=== PATIENT | male | born 1965 | race Caucasian/White ===

== ENCOUNTER 2024-09-28 10:01 | Inpatient (IN) ==
[2024-09-28 10:15] LABS: ABG BASE EXCESS 21.4 mmol/L (-2.0-2.0)
[2024-09-28 10:16] LABS: ABG ALLEN TEST POS; ABG HCO3 46.6 mmol/L (22-26)
--- NOTE | 2024-09-28 10:17 | DR.GENAD ---
HPI Time Seen Time Seen by Provider: 09/28/24 10:10 PCP Primary Care Physician: Brittni Cabezas in with [facility] Complaint/Symptoms Chief Complaint:: Pt states that he has been "retaining water" for weeks and when we went to get pt in a gown he stated "i need to catch my breath". Pt states has copd and wears oxygen at 4L at home and that he does better with a mask for oxygen. Self Treatment fo Chief Complaint: Pt o2 sat noted being 66% on room air. Pt placed on venni mask at 50% and came up to 78%. Respiratory is at bedside at this time. COVID-19 Coronavirus risk:travel/contact w/high risk person: No Has patient experienced Coronavirus symptoms: No Source History Provided: Patient Mode of Arrival Mode of Arrival: Wheelchair Timing Onset of Chief Complaint: 09/28/24 PMH PMH Past Medical History: Yes Past Medical History: CHF, COPD, Coronary Artery Disease, Diabetes, Dyslipidemia, Hypertension and Renal Disease Past Medical History Comment: PVD Past Surgical History: Yes Surgical History: Tonsillectomy Family History History of Family Medical Conditions: Yes Family Medical History: Heart Failure and Hypertension Social History Does patient currently use any type of tobacco product: No Have you used tobacco products in the last 12 months: No Does any household member use tobacco: No Alcohol Use: None Do you use any recreational Drugs:: No Lives With: Family Lives Where: Home Travel Risk Coronavirus risk:travel/contact w/high risk person: No Has patient experienced Coronavirus symptoms: No Infectious screening Have you traveled outside the country in the last 6 months?: No Isolation: Standard PE Vital Signs Vitals: Vital Signs Temperature 97.9 F Pulse Rate 86 Pulse Rate 82 Pulse Rate 84 Pulse Rate 86 Pulse Rate 87 Pulse Rate 88 Pulse Rate 98 Pulse Rate 87 Pulse Rate 87 Pulse Rate 88 Pulse Rate 84 Pulse Rate 86 Pulse Rate 92 Respiratory Rate 33 Respiratory Rate 32 Respiratory Rate 25 Respiratory Rate 22 Blood Pressure 111/64 O2 Sat by Pulse Oximetry 95 O2 Sat by Pulse Oximetry 98 O2 Sat by Pulse Oximetry 95 O2 Sat by Pulse Oximetry 94 O2 Sat by Pulse Oximetry 95 O2 Sat by Pulse Oximetry 94 O2 Sat by Pulse Oximetry 84 O2 Sat by Pulse Oximetry 94 O2 Sat by Pulse Oximetry 96 O2 Sat by Pulse Oximetry 95 O2 Sat by Pulse Oximetry 94 O2 Sat by Pulse Oximetry 92 ROR Labs Reviewed 09/28/24 10:37 09/28/24 10:37 Laboratory: WBC 8.7 X10^3/uL (3.6-10.0) 09/28/24 10:37 RBC 3.52 X10^6/uL (4.7-6.0) L 09/28/24 10:37 Hgb 12.3 g/dL (13.5-18.0) L 09/28/24 10:37 Hct 35.7 % (42.0-54.0) L 09/28/24 10:37 MCV 101.2 fL (80.0-100.0) H 09/28/24 10:37 MCH 34.9 pg (27.0-34.0) H 09/28/24 10:37 MCHC 34.5 g/dL (33.0-35.0) 09/28/24 10:37 RDW 15.0 % (11.6-16.5) 09/28/24 10:37 Plt Count 113 X10^3/uL (150.0-450.0) L 09/28/24 10:37 MPV 7.7 fL (7.4-11.0) 09/28/24 10:37 Neut % (Auto) 73.0 % (42.0-75.0) 09/28/24 10:37 Lymph % (Auto) 14.3 % (21.0-51.0) L 09/28/24 10:37 [place] % (Auto) 9.2 % (0.0-13.0) 09/28/24 10:37 Eos % (Auto) 2.8 % (0.9-2.9) 09/28/24 10:37 Baso % (Auto) 0.7 % (0.2-1.0) 09/28/24 10:37 Neut # (Auto) 6.3 x10^3/uL (2.2-4.8) H 09/28/24 10:37 Lymph # (Auto) 1.2 X10^3/uL (1.3-2.9) L 09/28/24 10:37 [place] # (Auto) 0.8 x10^3/uL (0.3-0.8) 09/28/24 10:37 Eos # (Auto) 0.2 x10^3/uL (0.0-0.2) 09/28/24 10:37 Baso # (Auto) 0.1 X10^3/uL (0.0-0.1) 09/28/24 10:37 Absolute Nucleated RBC 0.0 /100WBC 09/28/24 10:37 PT 17.8 SECONDS (11.8-14.3) 09/28/24 10:37 INR Target Range - 09/28/24 10:37 INR 1.51 (0.8-1.3) H 09/28/24 10:37 APTT 30.3 SECONDS (22.9-36.5) 09/28/24 10:37 PTT Comment - 09/28/24 10:37 Sample Site Rrad 09/28/24 10:04 ABG pH 7.560 (7.35-7.45) H* 09/28/24 10:04 ABG pCO2 52.0 mmHg (35.0-45.0) H* 09/28/24 10:04 ABG pO2 51.0 mmHg (80.0-100.0) L 09/28/24 10:04 ABG HCO3 46.6 mmol/L (22-26) H* 09/28/24 10:04 ABG O2 Saturation 91.0 % (90-100) 09/28/24 10:04 ABG Base Excess 21.4 mmol/L (-2.0-2.0) H 09/28/24 10:04 Jerman Test Pos 09/28/24 10:04 A-a Gradient 241.0 mmHg 09/28/24 10:04 FiO2 50.0 09/28/24 10:04 Blood Gas Comments Pt mariana well elj cdn 09/28/24 10:04 Sodium 132 mmol/L (136-145) L 09/28/24 10:37 Corrected Sodium 133 mmol/L (136-145) L 09/28/24 10:37 Potassium 2.5 mmol/L (3.5-5.1) L* 09/28/24 10:37 Chloride 89 mmol/L (98-107) L 09/28/24 10:37 Carbon Dioxide 40.0 mmol/L (21-32) H 09/28/24 10:37 BUN 20 mg/dL (7-18) H 09/28/24 10:37 Creatinine 1.40 mg/dL (0.70-1.30) H 09/28/24 10:37 Est GFR (MDRD) Af Amer > 60 (>60) 09/28/24 10:37 Est GFR (MDRD) Non-Af 55 (>60) L 09/28/24 10:37 Glucose 146 mg/dL (65-99) H 09/28/24 10:37 Calcium 9.2 mg/dL (8.5-10.1) 09/28/24 10:37 Corrected Calcium 10.3 mg/dL (8.5-10.1) H 09/28/24 10:37 Magnesium 1.2 mg/dL (2.0-2.9) L 09/28/24 10:37 Total Bilirubin 3.80 mg/dL (0.2-1.0) H 09/28/24 10:37 AST 30 Units/L (15-37) 09/28/24 10:37 ALT 19 Units/L (12-78) 09/28/24 10:37 Alkaline Phosphatase 174 Units/L (46-116) H 09/28/24 10:37 Creatine Kinase 29 Units/L (39-308) L 09/28/24 10:37 Troponin I High Sens 17.2 ng/L (4.0-60.0) 09/28/24 13:15 B-Natriuretic Peptide 374 pg/mL (0-79) H 09/28/24 10:37 Total Protein 6.4 g/dL (6.4-8.2) 09/28/24 10:37 Albumin 2.6 g/dL (3.4-5.0) L 09/28/24 10:37 Globulin 3.8 g/dL (2.5-4.5) 09/28/24 10:37 Albumin/Globulin Ratio 0.7 Ratio (1.1-2.1) L 09/28/24 10:37 Specimen Type Clean catch urine 09/28/24 11:39 Urine Color Yellow (YELLOW) 09/28/24 11:39 Urine Appearance Clear (CLEAR) 09/28/24 11:39 Urine pH 6.0 (5.0 - 8.0) 09/28/24 11:39 Ur Specific [place] 1.015 (1.000-1.030) 09/28/24 11:39 Urine Protein Negative (NEGATIVE) 09/28/24 11:39 Urine Glucose (UA) Negative (NEGATIVE) 09/28/24 11:39 Urine Ketones Negative (NEGATIVE) 09/28/24 11:39 Urine Blood 1+ (NEGATIVE) 09/28/24 11:39 Urine Nitrite Negative (NEGATIVE) 09/28/24 11:39 Urine Bilirubin Negative (NEGATIVE) 09/28/24 11:39 Urine Urobilinogen 1+ (NORMAL) 09/28/24 11:39 Ur Leukocyte Esterase Negative (NEGATIVE) 09/28/24 11:39 Urine RBC 0-2 /HPF (0-3) 09/28/24 11:39 Urine WBC None seen /HPF (0-5) 09/28/24 11:39 Ur Squamous Epith Cells Rare /HPF (NEGATIVE) 09/28/24 11:39 Urine Bacteria Trace /HPF (NEGATIVE) 09/28/24 11:39 Ur Culture Indicated? No/not indicated 09/28/24 11:39 Opioid Opioid Risk Tool Age (Dax box if 16-45): No Total: 0 Total Score Risk Category: Low Risk Copyright: Riley predicting aberrant behaviors Discharge Plan Diagnosis Discharge Problem: SOB (shortness of breath), CHF (congestive heart failure), Edema, Hypokalemia, Hypomagnesemia, Hypoxia Discharge Plan Patient Disposition: 09 ADMITTED INPATIENT Condition: Stable Health Concerns: Post Hospitalization: new medications and changes needed to prevent readmission or further decline. Pt educated and given instructions on all concerns. Plan of Treatment: Continue with present treatment and follow up plan. Pt is to keep follow up appointment as instructed and take medications as ordered. Orders to Discharge Patient Discharge Orders: Transfer (Routine); Ordered 09/28/24 Ordered By: SELAM NORTH Instructions Stand Alone Forms: Post Hospital Follow Up Care
--- NOTE | 2024-09-28 10:23 | EKG ---
Test Reason : shortness of breath Blood Pressure : */* mmHG Vent. Rate : 87 BPM Atrial Rate : 87 BPM P-R Int : 138 ms QRS Dur : 96 ms QT Int : 332 ms P-R-T Axes : 59 75 -62 degrees QTc Int : 399 ms Normal sinus rhythm RSR' or QR pattern in V1 suggests right ventricular conduction delay Nonspecific ST and T wave abnormality Abnormal ECG No previous ECGs available Confirmed by Alfonso Pace MD ([id number]) on 09/30/2024 7:53:57 AM Referred By: Confirmed By: Alfonso Pace MD
[2024-09-28] MEDS: LASIX IVP ONE (10:33)
[2024-09-28 10:45] LABS: BASOPHILS # (AUTO) 0.1 X10^3/uL (0.0-0.1); BASOPHILS % (AUTO) 0.7 % (0.2-1.0); EOSINOPHILS # (AUTO) 0.2 x10^3/uL (0.0-0.2); EOSINOPHILS % (AUTO) 2.8 % (0.9-2.9); HEMATOCRIT 35.7 % (42.0-54.0); HEMOGLOBIN 12.3 g/dL (13.5-18.0); LYMPHOCYTES # (AUTO) 1.2 X10^3/uL (1.3-2.9); LYMPHOCYTES % (AUTO) 14.3 % (21.0-51.0); MEAN CORPUSCULAR HEMOGLOBIN 34.9 pg (27.0-34.0); MEAN CORPUSCULAR HGB CONC 34.5 g/dL (33.0-35.0); MEAN CORPUSCULAR VOLUME 101.2 fL (80.0-100.0); MEAN PLATELET VOLUME 7.7 fL (7.4-11.0); MONOCYTES # (AUTO) 0.8 x10^3/uL (0.3-0.8); MONOCYTES % (AUTO) 9.2 % (0.0-13.0); NEUTROPHILS # (AUTO) 6.3 x10^3/uL (2.2-4.8); PLATELET COUNT 113 X10^3/uL (150.0-450.0); RED BLOOD COUNT 3.52 X10^6/uL (4.7-6.0); WHITE BLOOD COUNT 8.7 X10^3/uL (3.6-10.0)
[2024-09-28 10:49] LABS: INR 1.51 (0.8-1.3)
[2024-09-28 10:57] LABS: ALANINE AMINOTRANSFERASE 19 Units/L (12-78); ALBUMIN 2.6 g/dL (3.4-5.0); ALKALINE PHOSPHATASE 174 Units/L (46-116); ASPARTATE AMINO TRANSFERASE 30 Units/L (15-37); BLOOD UREA NITROGEN 20 mg/dL (7-18); CALCIUM 9.2 mg/dL (8.5-10.1); CHLORIDE 89 mmol/L (98-107); COR CA(FOR HYPOALB) 10.3 mg/dL (8.5-10.1); COR NA(FOR HYPERGLY) 133 mmol/L (136-145); CREATINE KINASE 29 Units/L (39-308); GLUCOSE 146 mg/dL (65-99); SODIUM 132 mmol/L (136-145); TOTAL PROTEIN 6.4 g/dL (6.4-8.2); eGFR NON BLACK RACES 55 (>60)
[2024-09-28 11:03] LABS: POTASSIUM 2.5 mmol/L (3.5-5.1)
--- NOTE | 2024-09-28 11:42 | RAD ---
EXAM:CHEST, 1 VIEWHISTORY:Shortness of breathCOMPARISON:07/06/2021FINDINGS:The trachea is midline. The cardiac silhouette is enlarged with a tortuous thoracic aorta . Increased interstitial changes with prominent vascular markings are observed consistent with underlying CHF.. The bony thorax is unremarkable.IMPRESSION:Increased interstitial changes with prominent vascular markings are observed consistent with underlying CHF.THIS IS AN ELECTRONICALLY VERIFIED FINAL [id number]/2024 11:39 AM - Electronically signed by Williams Foote MD
[2024-09-28 11:51] LABS: BILIRUBIN,URINE NEGATIVE (NEGATIVE); BLOOD/HEMOGLOBIN,URINE 1+ (NEGATIVE); GLUCOSE, URINE NEGATIVE (NEGATIVE); KETONES,URINE NEGATIVE (NEGATIVE); LEUKOCYTE ESTERASE ,URINE NEGATIVE (NEGATIVE); NITRITES,URINE NEGATIVE (NEGATIVE); PROTEIN,URINE NEGATIVE (NEGATIVE); UROBILINOGEN,URINE 1+ (NORMAL)
[2024-09-28 12:00] LABS: APPEARANCE,URINE CLEAR (CLEAR); BACTERIA,URINE TRACE /HPF (NEGATIVE); COLOR,URINE YELLOW (YELLOW); RBC,URINE 0-2 /HPF (0-3); SQUAMOUS EPITHELIAL CELL,UR RARE /HPF (NEGATIVE)
[2024-09-28] MEDS: K-DUR TAB 20 MEQ PO SCH (13:00)
[2024-09-28] MEDS: MAGNESIUM SULFATE 1 GRAM/100 mL PREMIX 1 G/100 ML BAG IV ONE (13:44)
[2024-09-28] MEDS ORDERED: CONSULT PHARMACY - POTASSIUM & MAGNESIUM XX SCH ×2 (14:00→17:00)
[2024-09-28 15:42] VITALS: BMI 35.4
[2024-09-28] MEDS: PROVENTIL NEB TX 0.083% 2.5MG/ 3ML NEB SCH (16:06)
[2024-09-28] MEDS ORDERED: NovoLIN R (or HumuLIN R) SUBCUT PRN (16:35)
[2024-09-28] MEDS: MAG-OX TAB PO SCH (16:50)
[2024-09-28] MEDS: K-DUR TAB 20 MEQ PO ONE (16:50)
[2024-09-28] MEDS: LASIX IVP SCH (16:51)
[2024-09-28] MEDS ORDERED: PROVENTIL NEB TX 0.083% 2.5MG/ 3ML NEB SCH (17:00)
[2024-09-28] MEDS: COLACE CAP 100 MG PO PRN (18:21)
[2024-09-28] MEDS: MILK OF MAGNESIA PO PRN (18:22)
--- NOTE | 2024-09-28 20:56 | EKG ---
Test Reason : sob Blood Pressure : */* mmHG Vent. Rate : 85 BPM Atrial Rate : 85 BPM P-R Int : 116 ms QRS Dur : 96 ms QT Int : 488 ms P-R-T Axes : 47 76 41 degrees QTc Int : 580 ms Sinus rhythm with premature supraventricular complexes Possible Left atrial enlargement Abnormal ECG When compared with ECG of 28-SEP-2024 10:19, (Unconfirmed) premature supraventricular complexes are now present Inverted T waves have replaced nonspecific T wave abnormality in Anterior leads QT has lengthened Confirmed by Alfonso Pace MD ([id number]) on 09/30/2024 7:53:07 AM Referred By: Confirmed By: Alfonso Pace MD
[2024-09-28] MEDS ORDERED: PULMICORT NEB TX 0.5 MG NEB SCH (21:00)
[2024-09-28] MEDS: PULMICORT NEB TX 0.5 MG NEB SCH (21:05)
[2024-09-28] MEDS: SNACK - Diabetic Appropriate PO SCH (23:16)
[2024-09-29 06:25] LABS: BASOPHILS % (AUTO) 0.4 % (0.2-1.0); EOSINOPHILS # (AUTO) 0.2 x10^3/uL (0.0-0.2); EOSINOPHILS % (AUTO) 2.7 % (0.9-2.9); HEMATOCRIT 35.9 % (42.0-54.0); HEMOGLOBIN 12.2 g/dL (13.5-18.0); LYMPHOCYTES # (AUTO) 1.4 X10^3/uL (1.3-2.9); LYMPHOCYTES % (AUTO) 15.6 % (21.0-51.0); MEAN CORPUSCULAR HEMOGLOBIN 34.1 pg (27.0-34.0); MEAN CORPUSCULAR HGB CONC 33.8 g/dL (33.0-35.0); MEAN CORPUSCULAR VOLUME 100.9 fL (80.0-100.0); MEAN PLATELET VOLUME 8.1 fL (7.4-11.0); MONOCYTES # (AUTO) 0.9 x10^3/uL (0.3-0.8); MONOCYTES % (AUTO) 10.1 % (0.0-13.0); NEUTROPHILS # (AUTO) 6.2 x10^3/uL (2.2-4.8); NEUTROPHILS % (AUTO) 71.2 % (42.0-75.0); PLATELET COUNT 116 X10^3/uL (150.0-450.0); RED BLOOD COUNT 3.56 X10^6/uL (4.7-6.0); WHITE BLOOD COUNT 8.7 X10^3/uL (3.6-10.0)
[2024-09-29 06:48] LABS: ALANINE AMINOTRANSFERASE 21 Units/L (12-78); ALBUMIN 2.4 g/dL (3.4-5.0); ALKALINE PHOSPHATASE 162 Units/L (46-116); ASPARTATE AMINO TRANSFERASE 35 Units/L (15-37); BLOOD UREA NITROGEN 19 mg/dL (7-18); CARBON DIOXIDE 44.6 mmol/L (21-32); CHLORIDE 90 mmol/L (98-107); COR CA(FOR HYPOALB) 10.3 mg/dL (8.5-10.1); COR NA(FOR HYPERGLY) 135 mmol/L (136-145); CREATININE 1.38 mg/dL (0.70-1.30); GLUCOSE 161 mg/dL (65-99); MAGNESIUM 1.6 mg/dL (2.0-2.9); SODIUM 134 mmol/L (136-145); eGFR NON BLACK RACES 56 (>60)
[2024-09-29 06:58] LABS: POTASSIUM 2.2 mmol/L (3.5-5.1)
[2024-09-29] MEDS ORDERED: K-DUR TAB 20 MEQ PO SCH (09:00)
[2024-09-29] MEDS ORDERED: ULTRAM PO PRN (09:30)
[2024-09-29] MEDS ORDERED: PATIENT'S HOME MEDICATION (Omeprazole 40 mg capsule,delayed release(DR/EC)) PO SCH (09:30)
[2024-09-29] MEDS: K-DUR TAB 20 MEQ PO SCH (10:09)
--- NOTE | 2024-09-29 11:58 | DR.H&P ---
H&P History & Physical for Day of: H&P Date: 09/29/24 Chief Complaint Chief Complaint: SOB, edema History of Present Illness History of Present Illness: Mr Robbins is a 58y/o male with a PMH of CHF, COPD, Chronic respiratory failure on home O2, HTN, HLD, CKD presented with worsening dyspnea and leg edema. He reports taking lasix and metolazone at home with no relief. ER work up showed ABG consistent with hypoxia/hypercapnia, labs showed low K and Mag. CXR was concerning for CHF. UA negative. He was started on Iv lasix and electrolyte replacement. He is currently on 7L Oxy mask. He reports feeling better. His leg edema has improved. Labs/imaging reviewed: -WBC 8.7 Hgb 12.2 K 2.2 Mag 1.6 BUN/Cr 19/.38 -CXR reviewed Plan: admit to med-surg with telemetry. Follow CXR results. Continue IV lasix 40 mg daily, hold off on metolazone due to low BP. Echo pending. Replace K and Mag orally. Repeat K level this afternoon. Monitor I&Os, daily weights. Wean O2 as tolerated, keep sats > 90%. Continue nebs and pulmicort. Monitor AM labs/imaging. Past Medical History Past Medical History: CHF, COPD, Coronary Artery Disease, Diabetes, Dyslipidemia, Hypertension and Renal Disease Past Surgical History Surgical History: Tonsillectomy Family History Family Medical History: Heart Failure and Hypertension Social History Does patient currently use any type of tobacco product: No Have you used tobacco products in the last 12 months: No Type of Tobacco Use: Cigarettes How many years tobacco product used: 44 Does any household member use tobacco: No Alcohol Use: None Drug Use: Prescription Drugs Medications Home Medications: Home Medications Medication Instructions Recorded Confirmed Type dapagliflozin propanediol 5 mg 5 mg PO QDAY 09/28/24 09/28/24 History tablet (Farxiga) fluticasone propionate 50 1 spray intranasal QDAY 09/28/24 09/28/24 History mcg/actuation nasal spray,suspension furosemide 40 mg tablet 40 mg PO QDAY 09/28/24 09/28/24 History metolazone 2.5 mg tablet 2.5 mg PO DAILY 09/28/24 09/28/24 History metolazone 5 mg tablet 5 mg PO QDAY 09/28/24 09/28/24 History montelukast 10 mg tablet 10 mg PO QDAY 09/28/24 09/28/24 History omeprazole 40 mg capsule,delayed 40 mg PO QDAY 09/28/24 09/28/24 History release potassium chloride 10 mEq 10 meq PO BID 09/28/24 09/28/24 History tablet,extended release simvastatin 20 mg tablet 20 mg PO QPM 09/28/24 09/28/24 History tiotropium bromide 2.5 2 puff inhalation QDAY 09/28/24 09/28/24 History mcg/actuation mist for inhalation (Spiriva Respimat) tramadol 50 mg tablet 50 mg PO Q6H PRN 09/28/24 09/28/24 History Allergies Allergies Allergy/AdvReac Type Severity Reaction Status Date / Time No Known Allergies Allergy Verified 09/28/24 10:16 Labs 09/29/24 05:17 09/29/24 05:17 Labs: Laboratory WBC 8.7 X10^3/uL (3.6-10.0) 09/29/24 05:17 RBC 3.56 X10^6/uL (4.7-6.0) L 09/29/24 05:17 Hgb 12.2 g/dL (13.5-18.0) L 09/29/24 05:17 Hct 35.9 % (42.0-54.0) L 09/29/24 05:17 MCV 100.9 fL (80.0-100.0) H 09/29/24 05:17 MCH 34.1 pg (27.0-34.0) H 09/29/24 05:17 MCHC 33.8 g/dL (33.0-35.0) 09/29/24 05:17 RDW 15.0 % (11.6-16.5) 09/29/24 05:17 Plt Count 116 X10^3/uL (150.0-450.0) L 09/29/24 05:17 MPV 8.1 fL (7.4-11.0) 09/29/24 05:17 Neut % (Auto) 71.2 % (42.0-75.0) 09/29/24 05:17 Lymph % (Auto) 15.6 % (21.0-51.0) L 09/29/24 05:17 [place] % (Auto) 10.1 % (0.0-13.0) 09/29/24 05:17 Eos % (Auto) 2.7 % (0.9-2.9) 09/29/24 05:17 Baso % (Auto) 0.4 % (0.2-1.0) 09/29/24 05:17 Neut # (Auto) 6.2 x10^3/uL (2.2-4.8) H 09/29/24 05:17 Lymph # (Auto) 1.4 X10^3/uL (1.3-2.9) 09/29/24 05:17 [place] # (Auto) 0.9 x10^3/uL (0.3-0.8) H 09/29/24 05:17 Eos # (Auto) 0.2 x10^3/uL (0.0-0.2) 09/29/24 05:17 Baso # (Auto) 0.0 X10^3/uL (0.0-0.1) 09/29/24 05:17 Absolute Nucleated RBC 0.1 /100WBC 09/29/24 05:17 PT 17.8 SECONDS (11.8-14.3) 09/28/24 10:37 INR Target Range - 09/28/24 10:37 INR 1.51 (0.8-1.3) H 09/28/24 10:37 APTT 30.3 SECONDS (22.9-36.5) 09/28/24 10:37 PTT Comment - 09/28/24 10:37 Sample Site Rrad 09/28/24 10:04 ABG pH 7.560 (7.35-7.45) H* 09/28/24 10:04 ABG pCO2 52.0 mmHg (35.0-45.0) H* 09/28/24 10:04 ABG pO2 51.0 mmHg (80.0-100.0) L 09/28/24 10:04 ABG HCO3 46.6 mmol/L (22-26) H* 09/28/24 10:04 ABG O2 Saturation 91.0 % (90-100) 09/28/24 10:04 ABG Base Excess 21.4 mmol/L (-2.0-2.0) H 09/28/24 10:04 Jerman Test Pos 09/28/24 10:04 A-a Gradient 241.0 mmHg 09/28/24 10:04 FiO2 50.0 09/28/24 10:04 Blood Gas Comments Pt mariana well elj cdn 09/28/24 10:04 Sodium 134 mmol/L (136-145) L 09/29/24 05:17 Corrected Sodium 135 mmol/L (136-145) L 09/29/24 05:17 Potassium 2.2 mmol/L (3.5-5.1) L* 09/29/24 05:17 Chloride 90 mmol/L (98-107) L 09/29/24 05:17 Carbon Dioxide 44.6 mmol/L (21-32) H 09/29/24 05:17 BUN 19 mg/dL (7-18) H 09/29/24 05:17 Creatinine 1.38 mg/dL (0.70-1.30) H 09/29/24 05:17 Est GFR (MDRD) Af Amer > 60 (>60) 09/29/24 05:17 Est GFR (MDRD) Non-Af 56 (>60) L 09/29/24 05:17 Glucose 161 mg/dL (65-99) H 09/29/24 05:17 POC Glucose (mg/dL) 162 mg/dL (65-99) H 09/29/24 11:28 Calcium 9.0 mg/dL (8.5-10.1) 09/29/24 05:17 Corrected Calcium 10.3 mg/dL (8.5-10.1) H 09/29/24 05:17 Magnesium 1.6 mg/dL (2.0-2.9) L 09/29/24 05:17 Total Bilirubin 3.10 mg/dL (0.2-1.0) H 09/29/24 05:17 AST 35 Units/L (15-37) 09/29/24 05:17 ALT 21 Units/L (12-78) 09/29/24 05:17 Alkaline Phosphatase 162 Units/L (46-116) H 09/29/24 05:17 Creatine Kinase 31 Units/L (39-308) L 09/28/24 18:35 Troponin I High Sens 17.6 ng/L (4.0-60.0) 09/28/24 18:35 B-Natriuretic Peptide 374 pg/mL (0-79) H 09/28/24 10:37 Total Protein 6.0 g/dL (6.4-8.2) L 09/29/24 05:17 Albumin 2.4 g/dL (3.4-5.0) L 09/29/24 05:17 Globulin 3.6 g/dL (2.5-4.5) 09/29/24 05:17 Albumin/Globulin Ratio 0.7 Ratio (1.1-2.1) L 09/29/24 05:17 Specimen Type Clean catch urine 09/28/24 11:39 Urine Color Yellow (YELLOW) 09/28/24 11:39 Urine Appearance Clear (CLEAR) 09/28/24 11:39 Urine pH 6.0 (5.0 - 8.0) 09/28/24 11:39 Ur Specific [place] 1.015 (1.000-1.030) 09/28/24 11:39 Urine Protein Negative (NEGATIVE) 09/28/24 11:39 Urine Glucose (UA) Negative (NEGATIVE) 09/28/24 11:39 Urine Ketones Negative (NEGATIVE) 09/28/24 11:39 Urine Blood 1+ (NEGATIVE) 09/28/24 11:39 Urine Nitrite Negative (NEGATIVE) 09/28/24 11:39 Urine Bilirubin Negative (NEGATIVE) 09/28/24 11:39 Urine Urobilinogen 1+ (NORMAL) 09/28/24 11:39 Ur Leukocyte Esterase Negative (NEGATIVE) 09/28/24 11:39 Urine RBC 0-2 /HPF (0-3) 09/28/24 11:39 Urine WBC None seen /HPF (0-5) 09/28/24 11:39 Ur Squamous Epith Cells Rare /HPF (NEGATIVE) 09/28/24 11:39 Urine Bacteria Trace /HPF (NEGATIVE) 09/28/24 11:39 Ur Culture Indicated? No/not indicated 09/28/24 11:39 Review of Systems Constitutional: Weakness Eyes: No Symptoms Reported ENT: No Symptoms Reported Respiratory: Shortness of Breath and Wheezing Cardiovascular: Edema Gastrointestinal: No Symptoms Reported Genitourinary: No Symptoms Reported Musculoskeletal: Leg Pain Skin: No Symptoms Reported Neurological: No Symptoms Reported Physical Exam Vital Signs: Vital Signs Temperature 98.2 F Temperature 97.9 F Pulse Rate [Right Brachial] 90 Pulse Rate [Right Brachial] 92 Respiratory Rate 19 Respiratory Rate 19 Blood Pressure [Left Arm] 107/60 Blood Pressure [Right Arm] 115/57 O2 Sat by Pulse Oximetry 98 O2 Sat by Pulse Oximetry 94 Oriented: Normal Eyes: Normal Throat: Normal Respiratory: Rales Throughout and Wheezes Throughout Cardiovascular: Edema (chronic venous stasis/edema ) Auscultation: Bowel Sounds: Normal Palpation: Normal Tenderness: Normal Skin: Other (chronic venous stasis ) Musculoskeletal: Leg Psychiatric: Normal Affect: Normal Speech Pattern: Clear and Appropriate Assessment/Plan (1) CHF exacerbation: Qualifiers: Heart failure type: unspecified Qualified Code(s): I50.9 - Heart failure, unspecified Status: Acute (2) Acute and chronic respiratory failure: Qualifiers: Respiratory failure complication: unspecified whether with hypoxia or hypercapnia Qualified Code(s): J96.20 - Acute and chronic respiratory failure, unspecified whether with hypoxia or hypercapnia Status: Acute (3) Hypokalemia: Status: Acute (4) Hypomagnesemia: Status: Acute (5) HTN (hypertension): Qualifiers: Hypertension type: primary hypertension Qualified Code(s): I10 - Essent ial (primary) hypertension Status: Acute (6) Edema: Qualifiers: Edema type: unspecified Qualified Code(s): R60.9 - Edema, unspecified Status: Chronic Review H&P Reviewed: Yes Patient was examined?: Yes
[2024-09-29] MEDS: LASIX IVP SCH (12:01)
[2024-09-29] MEDS ORDERED: CONSULT PHARMACY - POTASSIUM & MAGNESIUM XX SCH (19:00)
[2024-09-29] MEDS: ZOCOR TAB 20 MG PO SCH (20:46)
--- NOTE | 2024-09-29 22:08 | RAD ---
EXAMINATION: CHEST, 1 VIEW HISTORY: SOB, CHF, HYPOKALEMIA; SOB, CHF, HYPOKALEMIA . COMPARISON STUDY: Chest x-ray 09/28/2024 TECHNIQUE: Single portable upright AP view chest FINDINGS: Alveolar infiltrates lower lung grimes. Obscuring of the hemidiaphragms which may represent pleural fluid collections. Mild cardiac silhouette enlargement with slight pulmonary vascular congestion. P rominent pulmonary arteries which may represent pulmonary arterial hypertension. Bones appear intact . IMPRESSION: Bibasilar opacities with probable pleural fluid collections. Cardiac silhouette enlargement with slight pulmonary vascular congestion. Prominent central pulmonary arteries which may represent pulmonary arterial hypertension. THIS IS AN ELECTRONICALLY VERIFIED FINAL REPORT 09/29/2024 10:04 PM - Electronically signed by Amee Ibarra MD
[2024-09-30 06:51] LABS: BASOPHILS % (AUTO) 0.5 % (0.2-1.0); EOSINOPHILS # (AUTO) 0.3 x10^3/uL (0.0-0.2); EOSINOPHILS % (AUTO) 3.3 % (0.9-2.9); HEMATOCRIT 33.5 % (42.0-54.0); HEMOGLOBIN 11.5 g/dL (13.5-18.0); LYMPHOCYTES # (AUTO) 1.7 X10^3/uL (1.3-2.9); LYMPHOCYTES % (AUTO) 18.9 % (21.0-51.0); MEAN CORPUSCULAR HEMOGLOBIN 34.3 pg (27.0-34.0); MEAN CORPUSCULAR HGB CONC 34.2 g/dL (33.0-35.0); MEAN CORPUSCULAR VOLUME 100.3 fL (80.0-100.0); MEAN PLATELET VOLUME 8.1 fL (7.4-11.0); MONOCYTES # (AUTO) 0.9 x10^3/uL (0.3-0.8); MONOCYTES % (AUTO) 9.7 % (0.0-13.0); NEUTROPHILS % (AUTO) 67.6 % (42.0-75.0); PLATELET COUNT 123 X10^3/uL (150.0-450.0); RED BLOOD COUNT 3.34 X10^6/uL (4.7-6.0); WHITE BLOOD COUNT 8.9 X10^3/uL (3.6-10.0)
[2024-09-30 07:17] LABS: ALANINE AMINOTRANSFERASE 21 Units/L (12-78); ALBUMIN 2.4 g/dL (3.4-5.0); ALKALINE PHOSPHATASE 150 Units/L (46-116); ASPARTATE AMINO TRANSFERASE 33 Units/L (15-37); BLOOD UREA NITROGEN 15 mg/dL (7-18); CALCIUM 8.7 mg/dL (8.5-10.1); CARBON DIOXIDE 44.2 mmol/L (21-32); CHLORIDE 91 mmol/L (98-107); COR NA(FOR HYPERGLY) 138 mmol/L (136-145); CREATININE 1.22 mg/dL (0.70-1.30); GLUCOSE 144 mg/dL (65-99); MAGNESIUM 1.6 mg/dL (2.0-2.9); SODIUM 137 mmol/L (136-145); TOTAL PROTEIN 5.9 g/dL (6.4-8.2); eGFR NON BLACK RACES > 60 (>60)
[2024-09-30 07:24] LABS: POTASSIUM 2.8 mmol/L (3.5-5.1)
[2024-09-30] MEDS: LOVENOX INJ 40 MG SYR SC SCH (10:19)
[2024-09-30] MEDS: PriLOSEC PO SCH (10:20)
--- NOTE | 2024-09-30 11:27 | RAD ---
EXAM:CHEST x-ray, two viewsHISTORY:PNUEMONIA [id number]:X-ray from previous dayFINDINGS:Bilateral lung infiltrates persist and could be pneumonia and/or pulmonary edema. There is concern for CHF as seen on prior study. Persistent moderate pleural effusions are unchanged. No pneumothorax is seen.IMPRESSION:There is probable CHF and moderate pleural effusions.Lung infiltrates are likely pulmonary edema with possible pneumonia. Findings are unchanged.THIS IS AN ELECTRONICALLY VERIFIED FINAL [id number]/30/2024 11:24 AM - Electronically signed by Hugo Titus MD
[2024-09-30 17:51] LABS: RETICULOCYTE % 1.96 % (0.8-2.2)
[2024-09-30 18:21] LABS: TOTAL IRON BINDING CAPACITY 186 ug/dL (250-450)
[2024-09-30 18:31] LABS: IRON 52 ug/dL (50-175)
[2024-09-30] MEDS: NS + KCL 20 MEQ/L 1,000 ML IV SCH (18:31)
[2024-09-30] MEDS: LASIX IVP SCH (21:08)
[2024-09-30] MEDS: DULCOLAX TAB EC 5 MG PO ONE (21:08)
[2024-09-30] MEDS: KLOR-CON PO SCH (21:09)
[2024-10-01 06:32] LABS: BASOPHILS % (AUTO) 0.4 % (0.2-1.0); BLOOD UREA NITROGEN 13 mg/dL (7-18); CARBON DIOXIDE 43.1 mmol/L (21-32); CHLORIDE 88 mmol/L (98-107); COR NA(FOR HYPERGLY) 135 mmol/L (136-145); CREATININE 1.22 mg/dL (0.70-1.30); EOSINOPHILS # (AUTO) 0.3 x10^3/uL (0.0-0.2); EOSINOPHILS % (AUTO) 3.7 % (0.9-2.9); GLUCOSE 149 mg/dL (65-99); HEMATOCRIT 36.1 % (42.0-54.0); HEMOGLOBIN 12.4 g/dL (13.5-18.0); LYMPHOCYTES # (AUTO) 1.6 X10^3/uL (1.3-2.9); LYMPHOCYTES % (AUTO) 16.8 % (21.0-51.0); MEAN CORPUSCULAR HEMOGLOBIN 34.8 pg (27.0-34.0); MEAN CORPUSCULAR HGB CONC 34.3 g/dL (33.0-35.0); MEAN CORPUSCULAR VOLUME 101.3 fL (80.0-100.0); MEAN PLATELET VOLUME 7.9 fL (7.4-11.0); MONOCYTES # (AUTO) 0.9 x10^3/uL (0.3-0.8); MONOCYTES % (AUTO) 10.1 % (0.0-13.0); NEUTROPHILS # (AUTO) 6.4 x10^3/uL (2.2-4.8); PLATELET COUNT 105 X10^3/uL (150.0-450.0); RED BLOOD COUNT 3.56 X10^6/uL (4.7-6.0); SODIUM 134 mmol/L (136-145); WHITE BLOOD COUNT 9.3 X10^3/uL (3.6-10.0); eGFR NON BLACK RACES > 60 (>60)
[2024-10-01 06:46] LABS: ALANINE AMINOTRANSFERASE 27 Units/L (12-78); ALBUMIN 2.6 g/dL (3.4-5.0); ALKALINE PHOSPHATASE 164 Units/L (46-116); ASPARTATE AMINO TRANSFERASE 37 Units/L (15-37); COR CA(FOR HYPOALB) 10.1 mg/dL (8.5-10.1); MAGNESIUM 1.6 mg/dL (2.0-2.9); TOTAL PROTEIN 6.4 g/dL (6.4-8.2)
[2024-10-01] MEDS ORDERED: CONSULT PHARMACY - POTASSIUM & MAGNESIUM XX SCH (07:00)
[2024-10-01] MEDS: MAG-OX TAB PO SCH (08:36)
--- NOTE | 2024-10-01 10:26 | RAD ---
EXAM:Portable chestHISTORY:Hypoxia, shortness of breathCOMPARISON:09/30/2024FINDINGS:Hear t remains enlarged. Jeane are prominent somewhat indistinct. Bilateral infiltrates are present and unchanged more prominent in the lower than the upper lobes. This could represent congestive heart failure or bilateral pneumonia. Bilateral pleural effusions are unchanged.IMPRESSION:No significant change from the prior examinationTHIS IS AN ELECTRONICALLY VERIFIED FINAL [id number]/01/2024 10:23 AM - Electronically signed by Wong Siu MD
[2024-10-01 10:48] LABS: ABG BASE EXCESS 22.2 mmol/L (-2.0-2.0); ABG HCO3 49.1 mmol/L (22-26)
[2024-10-01 10:49] LABS: ABG ALLEN TEST POS
[2024-10-01] MEDS ORDERED: K-DUR TAB 20 MEQ PO SCH (11:00)
[2024-10-01 14:22] VITALS: BP 98/53; PULSE 91; RESP 22; TEMP 98.1; O2SAT 99
== END 2024-10-01 13:20 | disposition home health service (06) | DRG 291 ==
LOC: ER 10:01 → MED/SURG 13:44
PROVIDERS: ADMIT Internal Medicine; ATTEND Internal Medicine
DX: J96.22 Acute and chronic respiratory failure with hypercapnia; I50.9 Heart failure, unspecified; E83.42 Hypomagnesemia; E11.65 Type 2 diabetes mellitus with hyperglycemia; J44.9 Chronic obstructive pulmonary disease, unspecified; E87.6 Hypokalemia; J96.21 Acute and chronic respiratory failure with hypoxia; Z99.81 Dependence on supplemental oxygen; E78.5 Hyperlipidemia, unspecified; E11.622 Type 2 diabetes mellitus with other skin ulcer; L97.929 Non-pressure chronic ulcer of unspecified part of left lower leg with unspecified severity; N18.9 Chronic kidney disease, unspecified; E87.1 Hypo-osmolality and hyponatremia; Z74.1 Need for assistance with personal care; R94.31 Abnormal electrocardiogram [ECG] [EKG]; I25.10 Atherosclerotic heart disease of native coronary artery without angina pectoris; R79.1 Abnormal coagulation profile; R26.89 Other abnormalities of gait and mobility; R60.0 Localized edema; I13.0 Hypertensive heart and chronic kidney disease with heart failure and stage 1 through stage 4 chronic kidney disease, or unspecified chronic kidney disease